=== PATIENT | female | born 1975 | race Caucasian/White ===

== ENCOUNTER 2022-04-08 06:20 | Day surgery (SDC) | payer BC ==
[~2022-04-08] VITALS: Ht 160 cm; Wt 54.4 kg
[2022-04-08] MEDS ORDERED: MEPERIDINE 100 MG INJ. 100 MG/ML VIAL ONE (07:06)
[2022-04-08] MEDS ORDERED: SIMETHICONE 40 MG/0.6 ML ML ONE (07:06)
[2022-04-08] MEDS ORDERED: MIDAZOLAM HCL 5 MG/5 ML VIAL ONE (07:06)
[2022-04-08 12:17] VITALS: BP_SYST 100
== END 2022-04-08 10:18 | disposition home or self-care (01) ==
LOC: SDS 06:20 → SMU 06:21 → SDS 10:18
PROVIDERS: ATTEND Internal Medicine Gastroenterology
DX: Z12.11 Encounter for screening for malignant neoplasm of colon (principal); K64.9 Unspecified hemorrhoids; K64.4 Residual hemorrhoidal skin tags; Z79.899 Other long term (current) drug therapy; Z20.822 Contact with and (suspected) exposure to COVID-19
CPT/HCPCS: 45378; 87426; 84703; 36415; G0378; J2250; J2175